=== PATIENT | female | born 1975 | race Caucasian/White ===

== ENCOUNTER 2018-10-11 09:35 | Emergency (ER) | payer OTHER ==
[2018-10-11 09:41] VITALS: BMI 23.2
--- NOTE | 2018-10-11 09:59 | PDOC ---
History of Present Illness - General Chief Complaint: Syncope/Near Syncope Stated Complaint: SYNCOPE Time Seen by Provider: 10/11/18 09:59 History Source: Patient Exam Limitations: No Limitations - History of Present Illness Initial Comments: Pt is a 43 yo F, with PMH of chronic pain (on gabapentin, "trigger point injections" started 1 mo ago), who is presenting after a syncopal episode today. Pt states she got more trigger point injections 2 days ago, which made her feel very nauseous and tired. Pt states yesterday she continued to have nausea with limited PO intake. Shortly after awaking this morning, pt had a "pressure headache around her head," felt that he was going to pass out, and then awoke on alej[facility] floor with her son waking her up. There was no generalized shaking, incontinence, or tongue biting, and awoke when her son with no confusion. Pt denies any recent fevers/chills, vision changes, chest pain, palpitations, SOB, vomiting, abdominal pain, urinary symptoms, diarrhea/ constipation, or leg swelling. Allergies: NKDA PCP: Dr. Gray Social: Pt denies any cigarette, alcohol, or drug use. Pt denies any recent travel or sick contacts. Surgical: no relevant history. Family: no relevant history. 10/11/18 10:31 Past History - Travel Traveled outside of the country in the last 30 days: No Close contact w/someone who was outside of country & ill: No - Past Medical History Allergies/Adverse Reactions: Allergies Allergy/AdvReac Type Severity Reaction Status Date / Time No Known Allergies Allergy Verified 10/11/18 09:41 Home Medications: Ambulatory Orders NK [No Known Home Medication] 10/11/18 COPD: No - Suicide/Smoking/Psychosocial Hx Smoking History: Never smoked Review of Systems - Review of Systems Able to Perform ROS?: Yes Is the patient limited Czech proficient: No Constitutional: Yes: Weight Stable. No: Chills, Diaphoresis, Fever, Loss of Appetite, Malaise, Weakness HEENTM: No: Blurred Vision, Double Vision, Nose Congestion, Throat Pain, Throat Swelling, Difficulty Swallowing Respiratory: No: Cough, Orthopnea, Shortness of Breath Cardiac (ROS): Yes: Syncope. No: Chest Pain, Edema, Irregular Heart Rate, Lightheadedness, Palpitations, Chest Tightness ABD/GI: Yes: See HPI, Nausea, Poor Appetite, Poor Fluid Intake. No: Constipated , Diarrhea, Vomiting, Abdominal cramping : No: Burning, Dysuria, Frequency, Pain, Urgency Musculoskeletal: No: Back Pain, Joint Pain, Muscle Pain, Muscle Weakness Integumentary: No: Rash Neurological: No: Headache, Numbness, Weakness, Unsteady Gait, Dizziness Psychiatric: No: Sleep Pattern Change, Change in Appetite Endocrine: No: Flushing, Intolerance to Cold, Intolerance to Heat, Increased Urine, Change in Weight Hematologic/Lymphatic: No: Anemia, Blood Clots, Easy Bleeding, Easy Bruising All Other Systems: Reviewed and Negative *Physical Exam - Vital Signs Last Vital Signs Temp Pulse Resp BP Pulse Ox 98.7 F 70 18 123/74 100 10/11/18 09:37 10/11/18 09:37 10/11/18 09:37 10/11/18 09:37 10/11/18 09:37 - Physical Exam Comments: Vitals stable, pt afebrile. Pt in NAD, normal body habitus. Pt alert and oriented x3. chemistry laboratory technician generally intact, muscular strength and sensation intact. Cerebellar exam WNL. No midline spinal tenderness, step-offs, or crepitus. Head normocephalic, atraumatic. Eyes PERRLA, EOMI. Oropharynx without erythema or exudates, no LAD b/l. No nasal congestion, hearing intact. Clear heart sounds, S1/S2, no JVD, b/l pedal edema, or heart murmur. Clear lung sounds, no respiratory distress, wheezes, crackles, or accessory muscle use. No abdominal or CVA tenderness to palpation, no rebound, no guarding. Abdomen soft, non-distended, and with normoactive bowel sounds. Skin without jaundice or rash. 10/11/18 10:34 10/11/18 12:32 ED Treatment Course - LABORATORY CBC & Chemistry Diagram: 10/11/18 10:07 10/11/18 11:04 Medical Decision Making - Medical Decision Making Pt was seen at bedside, also will be seen by attending Dr. Pearl. Pt presenting after 1 syncopal episode this AM, which was precipitated by a headache. Pt alos had poor PO intake over the preceding 2 days 2/2 trigger point injections by her pain management physician. Will proceed with labs to evaluate for electrolyte abnormalities, anemia, and non-contrast CT head to eval for bleed/SAH. Provided 1 g IV ofirmev, 4 mg IV zofran and 1 L IV NS for improvement of pain and nausea. Will continue to reassess pt and monitor for symptomatic improvement. ECG: NSR, intervals WNL (HR 65, RI 130, QRS 86, QTc 397. No TWIs or significant ST segment changes. No significant changes from prior ECG. 10/11/18 12:34 CBC and CMP WNL, no anemia or electrolyte abnormalities. Serum negative. Pending head CT. 10/11/18 12:[address] negative for any acute pathology. PCP follow-up. Strict return precautions provided. 10/11/18 13:08 *DC/Admit/Observation/Transfer Diagnosis at time of Disposition: Syncope and collapse - Discharge Dispostion Disposition: HOME Condition at time of disposition: Good Decision to Admit order: No - Referrals Referrals: Arelis Grady MD [Staff Physician] - - Patient Instructions Printed Discharge Instructions: DI for Syncope in Adults (Fainting) Additional Instructions: You were seen in the ER today for fainting. The results of your labs and imaging today were normal. Please follow-up with your primary care doctor within 1-2 days to discuss your visit and make sure your symptoms have improved. Please return to the ER if you have any worsening pain, development of fevers or chills, loss of consciousness, inability to tolerate food or fluids , or any other concerns. - Post Discharge Activity
[2018-10-11] MEDS ORDERED: SODIUM CHLORIDE 1,000 ML IV STA (10:15)
[2018-10-11 11:12] LABS: BASO % 0.5 % (0-2.0); EOS % 0.7 % (0-4.5); HEMOGLOBIN 12.4 GM/dL (10.7-15.3); LYMPH % 20.6 % (8-40); MCH 29.4 pg (25.7-33.7); MCHC 33.4 g/dl (32.0-36.0); MEAN CELL VOLUME 88.1 fl (80-96); MEAN PLT VOLUME 9.3 fl (7.5-11.1); MONO % 6.8 % (3.8-10.2); NEUT % 71.4 % (42.8-82.8); PLATELET COUNT 337 K/MM3 (134-434); WHITE BLOOD COUNT 9.1 K/mm3 (4.0-10.0)
[2018-10-11] MEDS ORDERED: ACETAMINOPHEN 1000 MG/100 ML VIAL (NON FORMULARY) IVPB ONE (11:12)
[2018-10-11] MEDS ORDERED: ONDANSETRON 4 MG/2 ML VIAL IVPUSH ONE (11:13)
[2018-10-11] MEDS ORDERED: ACETAMINOPHEN INJECTION 100 ML IVPB ONE (11:18)
[2018-10-11] MEDS ORDERED: ONDANSETRON 4 MG/2 ML VIAL ONE (11:18)
[2018-10-11 11:51] LABS: ALBUMIN 3.7 g/dl (3.4-5.0); BILIRUBIN,TOTAL 0.6 mg/dL (0.2-1); BLOOD UREA NITROGEN 11.3 mg/dL (7-18); CALCIUM 8.6 mg/dL (8.5-10.1); CREATININE 0.7 mg/dL (0.55-1.3); TOT PROT 7.4 g/dl (6.4-8.2)
[2018-10-11 12:11] LABS: PH,URINE 6.5 (5.0-8.0); URINE APPEARANCE CLEAR; URINE BILIRUBIN NEGATIVE (NEGATIVE); URINE COLOR YELLOW; URINE GLUCOSE (UA) NEGATIVE (NEGATIVE); URINE KETONE NEGATIVE (NEGATIVE); URINE LEUK ESTERASE NEGATIVE (NEGATIVE); URINE NITRITE NEGATIVE (NEGATIVE); URINE PROTEIN NEGATIVE (NEGATIVE); URINE UROBILINOGEN 0.2 mg/dL (0.2-1.0)
[2018-10-11 13:18] VITALS: BP 109/72; PULSE 76; TEMP 98.1
--- NOTE | 2018-10-11 14:03 | PDOC ---
Documentation entered by Britney Wren SCRIBE, acting as scribe for Carey Pearl MD. Carey Pearl MD: This documentation has been prepared by the nicoleibHolger salas Lincy, SCRIBE, under my direction and personally reviewed by me in its entirety. I confirm that the documentation accurately reflects all work, treatment, procedures, and medical decision making performed by me. Attending Attestation - Resident Resident Name: Mellisa Arellano - [facility] HPI: 10/11/18 10:33 The patient is a 43-year-old female with a past medical history significant for chronic back pain (recently started on pressure point injections and gabapentin ) presents to the emergency department s/p a syncopal episode. The patient reports on she received the pressure point injection with her pain management doctor, however, she reports was given double the dose than usual. The patient reports yesterday, she was unable to intake food secondary to feeling nauseous all day. The patient reports she woke up today feeling nauseous when she went to the kitchen, she felt a band-like pressure across her head and felt like she was about to pass out. The patient reports she regained conscious on the floor, and shes unsure how long she was down. Denies vomiting , slurred speech. - Physicial Exam PE: 10/11/18 11:57 GENERAL: Awake, alert, and fully oriented, in no acute distress LUNGS: Breath sounds equal, clear to auscultation bilaterally. No wheezes, and no crackles HEART: Regular rate and rhythm, normal S1 and S2, no murmurs, rubs or gallops NEUROLOGICAL: Cranial nerves II through XII grossly intact. Normal speech, normal gait. - Medical Decision Making 10/11/18 13:59 Pt presents to the ED complaining of syncope and band like frontal headache that began this AM. Moderate [place] persists, but patient is otherwise currently symptom free. Labs checked to rule out severe anemia or electrolyte disturbance , and are normal. CT head checked to rule out subarachnoid and is negative. test is negative. Will discharge home with instructions to return to the ED for worsening symptoms.
[2018-10-11 16:31] LABS: EPI CELLS 1.5 /HPF (0-5/HPF); HYALINE CASTS 0.35 /lpf (0-8); URINE BACTERIA 8.6 /hpf (NEGATIVE); URINE RBC 2.1 /hpf (0-4); URINE WBC 1.1 /hpf (0-5)
--- NOTE | 2018-10-12 09:05 | EKG ---
Test Reason : Blood Pressure : / mmHG Vent. Rate : 065 BPM Atrial Rate : 065 BPM P-R Int : 130 ms QRS Dur : 086 ms QT Int : 382 ms P-R-T Axes : 003 073 048 degrees QTc Int : 397 ms POOR DATA QUALITY, INTERPRETATION MAY BE ADVERSELY AFFECTED NORMAL SINUS RHYTHM NORMAL ECG WHEN COMPARED WITH ECG OF 25-JAN-2005 09:32, NO SIGNIFICANT CHANGE WAS FOUND Confirmed by HANS CRUZ MD ([id number]) on 10/12/2018 9:04:43 AM Referred By: Confirmed By:HANS CRUZ MD
== END 2018-10-11 13:21 | disposition home or self-care (01) ==
LOC: JER 09:35
PROC: 3E0337Z Introduction of Electrolytic and Water Balance Substance into Peripheral Vein, Percutaneous Approach (ICD-10-PCS; principal; 2018-10-11)
PROC: 3E033GC Introduction of Other Therapeutic Substance into Peripheral Vein, Percutaneous Approach (ICD-10-PCS; 2018-10-11)
PROC: 3E033NZ Introduction of Analgesics, Hypnotics, Sedatives into Peripheral Vein, Percutaneous Approach (ICD-10-PCS; 2018-10-11)
DX: R55 Syncope and collapse (principal)
CPT/HCPCS: 36415; 70450-TC; 80053; 81003; 82550; 82962; 84484; 84703; 85025; 93005; 93010; 96361; 96374; 96375; 99285-25; J0131; J7030

== ENCOUNTER 2021-03-09 09:35 | Emergency (ER) | payer OTHER ==
[2021-03-09 09:53] VITALS: BP 114/68; PULSE 90; TEMP 98.1; BMI 27.4
[2021-03-14 16:07] LABS: SARS-CoV-2 NAA Detected (Not Detected)
== END 2021-03-09 10:56 | disposition home or self-care (01) ==
LOC: JCOVINFU 09:35
DX: J06.9 Acute upper respiratory infection, unspecified (principal)
CPT/HCPCS: 99283-25; C9803; U0003; U0005

== ENCOUNTER 2022-01-20 10:27 | Emergency (ER) | payer OTHER ==
[2022-01-20 11:50] VITALS: BP 96/61; PULSE 86; RESP 18; TEMP 97.9; BMI 27.4
== END 2022-01-20 14:00 | disposition left against medical advice (07) ==
LOC: JER 10:27
DX: R05.1 Acute cough (principal)
CPT/HCPCS: 99281-25

== ENCOUNTER 2022-02-27 04:29 | Day surgery (SDC) | payer OTHER ==
[2022-02-23 12:14] VITALS: BMI 25.7
[~2022-02-27 04:29] MED LIST: BUPIVACAINE HCL/PF 0.5% (5MG/ML) 10 ML VIAL IJ ONE; IOHEXOL 180 MG/1 ML ML IJ ONE; LIDOCAINE HCL 1% PRESERVATIVE FREE - 30ML VIAL IJ ONE
[2022-02-27] MEDS ORDERED: BUPIVACAINE HCL/PF 0.5% (5MG/ML) 10 ML VIAL ONE (07:11)
[2022-02-27] MEDS ORDERED: LIDOCAINE HCL/PF 1% SDV 5ML VIAL ONE (07:11)
[2022-02-27] MEDS ORDERED: TRIAMCINOLONE ACET 40MG/1ML VIAL ONE (07:11)
[2022-02-27] MEDS ORDERED: IOHEXOL 180 MG/1 ML ML IJ ONE (11:27)
[2022-02-27] MEDS ORDERED: TRIAMCINOLONE ACET 40MG/1ML VIAL IM ONE (11:27)
[2022-02-27] MEDS ORDERED: BUPIVACAINE HCL/PF 0.5% (5MG/ML) 10 ML VIAL IJ ONE (11:27)
[2022-02-27] MEDS ORDERED: LIDOCAINE HCL 1% PRESERVATIVE FREE - 30ML VIAL IJ ONE (11:27)
[2022-02-27 13:08] VITALS: RESP 18; TEMP 98.8
[2022-02-27 13:33] VITALS: BP 118/68; PULSE 68
== END 2022-02-27 12:05 | disposition home or self-care (01) ==
LOC: JASU-SURG 04:29
PROVIDERS: ATTEND Pain Medicine Pain Medicine
PROC: 3E0U3BZ Introduction of Anesthetic Agent into Joints, Percutaneous Approach (ICD-10-PCS; 2022-02-27)
PROC: 3E0U33Z Introduction of Anti-inflammatory into Joints, Percutaneous Approach (ICD-10-PCS; principal; 2022-02-27 11:30)
DX: M53.3 Sacrococcygeal disorders, not elsewhere classified (principal)
CPT/HCPCS: 76000-TC-FY; 81025

== ENCOUNTER 2022-06-19 04:16 | Day surgery (SDC) | payer OTHER ==
[2022-06-19 09:34] VITALS: BMI 27.4
[2022-06-19 09:56] VITALS: PULSE 60; RESP 18
[2022-06-19] MEDS ORDERED: BUPIVACAINE HCL/PF 0.75% 10 ML VIAL PNB ONE (10:48)
[2022-06-19] MEDS ORDERED: LIDOCAINE 1% P/F 10 MG/ML VIAL INF ONE (10:48)
[2022-06-19 11:46] VITALS: BP 122/60; TEMP 97.8
== END 2022-06-19 11:50 | disposition home or self-care (01) ==
LOC: JASU-SURG 04:16
PROVIDERS: ATTEND Pain Medicine Pain Medicine
PROC: 3E0T33Z Introduction of Anti-inflammatory into Peripheral Nerves and Plexi, Percutaneous Approach (ICD-10-PCS; 2022-06-19)
PROC: 3E0T3BZ Introduction of Anesthetic Agent into Peripheral Nerves and Plexi, Percutaneous Approach (ICD-10-PCS; principal; 2022-06-19 11:00)
DX: M47.816 Spondylosis without myelopathy or radiculopathy, lumbar region (principal)
CPT/HCPCS: 76000-TC-FY; 81025

== ENCOUNTER 2023-01-02 09:07 | Emergency (ER) | payer OTHER ==
[2023-01-02 09:26] VITALS: BP 114/47; PULSE 71; RESP 18; TEMP 98; BMI 27.4
[2023-01-02] MEDS ORDERED: DEXAMETHASONE SOD PHOSPHATE 10 MG/1 ML VIAL IM ONE (11:48)
[2023-01-02] MEDS ORDERED: KETOROLAC TROMETHAMINE 30 MG/1 ML VIAL IM ONE (11:48)
[2023-01-02] MEDS ORDERED: KETOROLAC TROMETHAMINE 30 MG/1 ML VIAL ONE (11:59)
[2023-01-02] MEDS ORDERED: DEXAMETHASONE SOD PHOSPHATE 10 MG/1 ML VIAL ONE (12:00)
== END 2023-01-02 12:31 | disposition home or self-care (01) ==
LOC: JERFT 09:07
PROC: 3E023NZ Introduction of Analgesics, Hypnotics, Sedatives into Muscle, Percutaneous Approach (ICD-10-PCS; principal; 2023-01-02)
PROC: 3E023GC Introduction of Other Therapeutic Substance into Muscle, Percutaneous Approach (ICD-10-PCS; 2023-01-02)
DX: M54.50 Low back pain, unspecified (principal); G89.29 Other chronic pain
CPT/HCPCS: 99284-25; J1100

== ENCOUNTER 2023-01-04 04:48 | Day surgery (SDC) | payer OTHER ==
[2023-01-02 17:04] VITALS: BMI 28.9
[~2023-01-04 04:48] MED LIST changes: -BUPIVACAINE HCL/PF 0.5% (5MG/ML) 10 ML VIAL IJ ONE; +BUPIVACAINE HCL/PF 0.75% 10 ML VIAL NR ONE; -IOHEXOL 180 MG/1 ML ML IJ ONE; +LIDOCAINE 1% P/F 10 MG/ML VIAL INF ONE; -LIDOCAINE HCL 1% PRESERVATIVE FREE - 30ML VIAL IJ ONE
[2023-01-04] MEDS ORDERED: LIDOCAINE HCL/PF 1% SDV 5ML VIAL ONE (07:10)
[2023-01-04] MEDS ORDERED: BUPIVACAINE HCL/PF 0.75% 10 ML VIAL ONE (07:10)
[2023-01-04 09:22] VITALS: RESP 18
[2023-01-04 10:18] VITALS: TEMP 96.9
[2023-01-04 11:02] VITALS: BP 109/69; PULSE 63
[2023-01-04] MEDS ORDERED: ACETAMINOPHEN 500 MG TABLET (FP) PO PRN (14:38)
== END 2023-01-04 10:50 | disposition home or self-care (01) ==
LOC: JASU-SURG 04:48
PROVIDERS: ATTEND Pain Medicine Pain Medicine
PROC: 3E0T3BZ Introduction of Anesthetic Agent into Peripheral Nerves and Plexi, Percutaneous Approach (ICD-10-PCS; principal; 2023-01-04 08:15)
DX: M47.816 Spondylosis without myelopathy or radiculopathy, lumbar region (principal)
CPT/HCPCS: 76000-TC-FY; 81025

== ENCOUNTER 2023-11-21 15:27 | Emergency (ER) | payer OTHER ==
[2023-11-21 15:45] VITALS: BP 109/73; PULSE 80; RESP 16; TEMP 98.5; BMI 30.1
[2023-11-21] MEDS ORDERED: DEXAMETHASONE SOD PHOSPHATE 10 MG/1 ML VIAL ONE (17:07)
[2023-11-21] MEDS ORDERED: KETOROLAC TROMETHAMINE 60 MG/2 ML VIAL ONE (17:07)
[2023-11-21] MEDS: DEXAMETHASONE SOD PHOSPHATE 10 MG/1 ML VIAL IM ONE (17:17)
[2023-11-21] MEDS: KETOROLAC TROMETHAMINE 60 MG/2 ML VIAL IM ONE (17:17)
== END 2023-11-21 17:46 | disposition home or self-care (01) ==
LOC: JERFT 15:27
PROC: 3E023GC Introduction of Other Therapeutic Substance into Muscle, Percutaneous Approach (ICD-10-PCS; principal; 2023-11-21)
PROC: 3E0133Z Introduction of Anti-inflammatory into Subcutaneous Tissue, Percutaneous Approach (ICD-10-PCS; 2023-11-21)
DX: M54.42 Lumbago with sciatica, left side (principal); M54.41 Lumbago with sciatica, right side; G89.29 Other chronic pain
CPT/HCPCS: 99284-25; J1100

== ENCOUNTER 2023-12-13 04:30 | Day surgery (SDC) | payer OTHER ==
[2023-12-12 15:45] VITALS: BMI 30.1
[2023-12-13] MEDS ORDERED: LIDOCAINE HCL/PF 2% SDV 5ML VIAL ONE (07:16)
[2023-12-13] MEDS ORDERED: LIDOCAINE HCL/PF 1% SDV 5ML VIAL ONE (07:16)
[2023-12-13] MEDS ORDERED: BUPIVACAINE HCL/PF 0.75% 10 ML VIAL ONE (07:16)
[2023-12-13] MEDS: LIDOCAINE HCL 1% PRESERVATIVE FREE - 30ML VIAL IJ ONE (09:59)
[2023-12-13] MEDS: LIDOCAINE HCL/PF 2% SDV 5ML VIAL INF ONE ×2 (09:59→10:12)
[2023-12-13] MEDS: DEXAMETHASONE SOD PHOSPHATE 10 MG/1 ML VIAL IVPUSH ONE ×2 (10:00→10:16)
[2023-12-13] MEDS: BUPIVACAINE HCL/PF 0.75% 10 ML VIAL NR ONE ×2 (10:01→10:16)
[2023-12-13 12:01] VITALS: BP 126/68; PULSE 56; RESP 17; TEMP 97.5
[2023-12-13] MEDS ORDERED: ACETAMINOPHEN 500 MG TABLET (FP) ONE (12:34)
[2023-12-13] MEDS ORDERED: ACETAMINOPHEN 500 MG TABLET (FP) PO ONE (13:30)
== END 2023-12-13 14:14 | disposition home or self-care (01) ==
LOC: JASU-SURG 04:30
PROVIDERS: ATTEND Pain Medicine Pain Medicine
PROC: 015B3ZZ Destruction of Lumbar Nerve, Percutaneous Approach (ICD-10-PCS; principal; 2023-12-13 09:45)
DX: M47.816 Spondylosis without myelopathy or radiculopathy, lumbar region (principal)
CPT/HCPCS: 76000-TC-FY; 81025; J1100